=== PATIENT | female | born 1955 | race Hispanic/Latino ===

== ENCOUNTER → 2021-11-16 | Outpatient (CLI) | payer MEDICARE | END | disposition home or self-care (01) | LOC: SHCH 14:24 | PROVIDERS: ATTEND Internal Medicine Cardiovascular Disease | DX: R01.1 Cardiac murmur, unspecified (principal) | CPT/HCPCS: 93306 ==

== ENCOUNTER → 2023-09-03 | Outpatient (CLI) | payer MEDICARE | END | disposition home or self-care (01) | LOC: RAH 10:00 | PROVIDERS: ATTEND Otolaryngology | DX: K21.9 Gastro-esophageal reflux disease without esophagitis (principal) | CPT/HCPCS: 74220 ==

== ENCOUNTER 2023-11-22 20:28 | Emergency (ER) | payer MEDICARE ==
[~2023-11-22] VITALS: Ht 127 cm; Wt 43.1 kg
[2023-11-22] MEDS ORDERED: METOPROLOL TARTRATE 1 MG/ML 5ML VIAL IV ONE ×4 (20:42→21:30)
[2023-11-22 20:51] LABS: BASOPHILS # (AUTO) 0.04 K/uL (0.00-0.20); BASOPHILS % (AUTO) 0.5 % (0.0-5.0); EOSINOPHILS # (AUTO) 0.14 K/uL (0.00-0.70); EOSINOPHILS % (AUTO) 1.8 % (0.0-8.0); HEMATOCRIT 38.5 % (36-48); IMMATURE GRANULOCYTE ABSOLUTE 0.02 K/uL (0-1); LYMPHOCYTES # (AUTO) 2.9 K/uL (1.0-4.8); LYMPHOCYTES % (AUTO) 36.1 % (21.0-51.0); MEAN CORPUSCULAR VOLUME 85.4 fL (79-99); MONOCYTES # (AUTO) 0.5 K/uL (0.1-1.0); MONOCYTES % (AUTO) 6.1 % (3.0-13.0); NEUTROPHILS # (AUTO) 4.4 K/uL (1.8-7.7); NEUTROPHILS % (AUTO) 55.2 % (40.0-77.0); PLATELET COUNT (AUTO) 293 K/uL (130-400); RED BLOOD CELL COUNT(AUTO) 4.51 MIL/uL (4.00-5.50); RED CELL DISTRIBUTION WIDTH 12.9 % (11.0-15.5); WHITE BLOOD COUNT (AUTO) 7.9 K/uL (4.8-10.8)
[2023-11-22 21:03] LABS: CREATININE 0.9 mg/dL (0.5-1.5); INR <= 0.93 (0.85-1.15); POTASSIUM 3.8 mmol/L (3.5-5.1); PROTHROMBIN TIME 10.3 SEC (9.6-11.6)
[2023-11-22 21:04] LABS: PARTIAL THROMBOPLASTIN TIME 24.6 SEC (26.3-35.5)
[2023-11-22 21:07] LABS: ALBUMIN 3.9 g/dL (3.5-5.0); BILIRUBIN,TOTAL 0.4 mg/dL (0.2-1.0); TOTAL PROTEIN, SERUM 7.6 g/dL (6.0-8.3)
[2023-11-22] MEDS ORDERED: OMEP40CA21 PO (22:06)
[2023-11-22] MEDS ORDERED: METO25 PO (22:06)
[2023-11-22 22:18] LABS: APPEARANCE,URINE CLEAR (CLEAR); BILIRUBIN,URINE NEGATIVE (NEGATIVE); COLOR,URINE COLORLESS (YELLOW); GLUCOSE, URINE (UA) NEGATIVE (NEGATIVE); KETONES,URINE NEGATIVE (NEGATIVE); LEUKOCYTE ESTERASE ,URINE NEGATIVE Leu/uL (NEGATIVE); NITRATE,URINE NEGATIVE (NEGATIVE); PROTEIN,URINE NEGATIVE (NEGATIVE); UROBILINOGEN,URINE 0.2 mg/dL (0.2-1.0)
[2023-11-22 22:21] LABS: ADD UA MICROSCOPIC YES
[2023-11-22 22:22] LABS: WBC,URINE 0-1 /HPF (0-1)
[2023-11-22 23:32] VITALS: BP 119/65; PULSE 94; RESP 17; O2SAT 98
== END 2023-11-22 23:33 | disposition home or self-care (01) ==
LOC: EDH 20:28
DX: R00.0 Tachycardia, unspecified (principal); F41.9 Anxiety disorder, unspecified; Z88.0 Allergy status to penicillin; Z88.8 Allergy status to other drugs, medicaments and biological substances; Z91.041 Radiographic dye allergy status; Z98.890 Other specified postprocedural states
CPT/HCPCS: 99285; 96374; 71045; 84443; 84484; 80053; 85025; 85378; 85610; 85730; 81001; 36415; 93005 ×2; J3490 ×2

== ENCOUNTER → 2024-11-26 | Outpatient (CLI) | payer MEDICARE ==
[~2024-11-26] MED LIST: METO25 PO; OMEP40CA21 PO
--- NOTE | 2024-11-26 10:32 | HMCIMG ---
UPPER GI TRACT, WO KUB REASON: Gastro-esophageal reflux disease without esophagitis, Epigastric pain COMPARISON: None TECHNIQUE: Air-contrast upper GI was performed with fluoroscopic observation, fluoroscopy time 0.6 minutes. 9 short cine sequences were acquired. FINDINGS: There is normal-appearing esophageal peristalsis. There is no evidence of mass, ulcer or obstructing lesion. There were no evidence of aspiration during the exam. Spot views of the stomach show normal findings. Mucosal pattern is unremarkable. There is no mass or ulcer. There is no outlet obstruction. Duodenal bulb and C-loop appear unremarkable as well. There was mild to moderate intermittent gastroesophageal reflux during the exam. IMPRESSION: 1. Mild to moderate intermittent gastroesophageal reflux. 2. Otherwise unremarkable air contrast upper GI.
== END | disposition home or self-care (01) ==
LOC: RAH 08:48
PROVIDERS: ATTEND Family Medicine
DX: K21.9 Gastro-esophageal reflux disease without esophagitis (principal); R10.13 Epigastric pain
CPT/HCPCS: 74240